=== PATIENT | female | born 1995 | race Hispanic/Latino ===

== ENCOUNTER 2022-05-02 13:25 | Outpatient (CLI) | payer OTHER | END 2022-05-02 13:26 | disposition home or self-care (01) | LOC: CSHULT 13:25 | PROVIDERS: ATTEND Nurse Practitioner Women's Health | DX: Z34.03 Encounter for supervision of normal first pregnancy, third trimester (principal); Z3A.29 29 weeks gestation of pregnancy | CPT/HCPCS: 76805 ==

== ENCOUNTER 2022-07-10 02:30 | Inpatient (IN) | payer OTHER ==
[2022-07-10 03:31] LABS: Fetal Membranes Rupture RUPTURE DETECTED (No Rupture)
[2022-07-10] MEDS ORDERED: Butorphanol Tartrate 1 MG/ML VIAL SLOW IVP PRN (03:53)
[2022-07-10] MEDS ORDERED: Ondansetron PF 4 MG/2 ML Vial IVP PRN ×3 (03:53→18:55)
[2022-07-10] MEDS ORDERED: Acetaminophen 500 MG TAB PO PRN (03:53)
[2022-07-10] MEDS ORDERED: Promethazine HCl 25 MG/ML VIAL IM PRN ×2 (03:53→09:37)
[2022-07-10] MEDS ORDERED: hydrALAZINE 20 MG/ML VIAL SLOW IVP PRN ×2 (03:53→18:55)
[2022-07-10] MEDS ORDERED: Lactated Ringer's 1,000 ML IV SCH (04:00)
[2022-07-10] MEDS ORDERED: Lidocaine 1% (PF) 30 ML VIAL SC PRN (04:08)
[2022-07-10] MEDS ORDERED: NS w/ Oxytocin 30 units 500 ML IV SCH ×3 (04:15→18:55)
[2022-07-10 04:34] VITALS: BMI 44.2
[2022-07-10 05:36] LABS: SARS-CoV-2 NAA Rapid Test Not Detected (NotDetected)
[2022-07-10 06:16] LABS: Hemoglobin 12.3 g/dL (12.0-15.5); Mean Corpuscular HGB CONC 35.3 g/dL (32.0-36.0); Mean Corpuscular Hemoglobin 30.8 pg (27.0-33.0); Mean Platelet Volume 11.3 fl (7.4-10.4); Platelet Count 267 10x3/uL (150-450); RBC Distribution Width 13.9 % (11.5-14.5); White Blood Cell (WBC) Count 11.9 10x3/uL (3.5-10.5)
[2022-07-10 06:50] LABS: Syphilis Antibody Nonreactive (Nonreactive); Syphilis Antibody Index 0.03 S/CO (<1.00 Non-Reactive)
[2022-07-10 06:52] LABS: HBSAg Index 0.17 S/CO (0-0.99); Hep B Surf Ag Non-Reactive S/CO (NonReactive)
[2022-07-10] MEDS ORDERED: Bupivacaine 0.25% HCL 30 ML VIAL ONE (08:00)
[2022-07-10] MEDS ORDERED: Fentanyl 2 mcg/Bup 0.1% Cadd 100 ML ONE (09:09)
[2022-07-10] MEDS ORDERED: ePHEDrine Sulfate 50 MG/10 ML VIAL SLOW IVP PRN (09:37)
[2022-07-10] MEDS ORDERED: Acetaminophen 325 MG TAB PO PRN (09:37)
[2022-07-10] MEDS ORDERED: Naloxone HCl 0.4 mg/ml Vial IVP PRN ×2 (09:37)
[2022-07-10] MEDS ORDERED: Lactated Ringer's 500 ML IV PRN (09:37)
[2022-07-10] MEDS ORDERED: diphenhydrAMINE 50 MG/ML VIAL IVP PRN (09:37)
[2022-07-10] MEDS ORDERED: Moisturizing Cream (Eucerin) 113 GM JAR TOP PRN (09:37)
[2022-07-10] MEDS ORDERED: Communication Order-Pharmacy FS SCH (09:45)
[2022-07-10] MEDS ORDERED: Fentanyl 2 mcg/Bupivacaine 0.1% Cassette 100 ML EPIDURAL SCH (09:45)
[2022-07-10] MEDS ORDERED: Milk Of Magnesia 30 ML UDCUP PO PRN (18:55)
[2022-07-10] MEDS ORDERED: Benzocaine-Menthol 82.5 ML CAN TOP PRN (18:55)
[2022-07-10] MEDS ORDERED: Boostrix 0.5 ML (Tdap) VIAL (>/=7 yrs of age) IM ONE (18:55)
[2022-07-10] MEDS ORDERED: Bisacodyl 10 MG SUPP PR PRN (18:55)
[2022-07-10] MEDS ORDERED: Misoprostol 200 MCG TAB VAG PRN (18:55)
[2022-07-10] MEDS ORDERED: Ferrous Sulfate 325 MG TAB PO SCH (20:00)
[2022-07-10] MEDS: Docusate 100 MG CAP PO SCH (21:16)
[2022-07-10] MEDS: Ibuprofen 800 MG TAB PO SCH (21:16)
[2022-07-11] MEDS: Ibuprofen 800 MG TAB PO SCH ×3 (05:48→22:01)
[2022-07-11] MEDS: Ferrous Sulfate 325 MG TAB PO SCH (07:17)
[2022-07-11] MEDS: Docusate 100 MG CAP PO SCH ×2 (08:50→22:01)
[2022-07-11] MEDS ORDERED: HYDROcodone/Acetaminophen 5/325 mg Tablet PO PRN (10:00)
[2022-07-11 20:06] VITALS: BP 98/57; TEMP 98.8
[2022-07-12] MEDS: Ibuprofen 800 MG TAB PO SCH ×2 (05:24→14:01)
[2022-07-12] MEDS: Docusate 100 MG CAP PO SCH (09:15)
[2022-07-12] MEDS: Ferrous Sulfate 325 MG TAB PO SCH (09:16)
[2022-07-12] MEDS ORDERED: Measles/Mumps/Rubella 10 MCG/0.5 ML VIAL SC ONE (11:00)
[2022-07-12] MEDS ORDERED: Boostrix 0.5 ML (Tdap) VIAL (>/=7 yrs of age) IM ONE (11:00)
== END 2022-07-12 14:10 | disposition home or self-care (01) | DRG 807 ==
LOC: CSHLD/OP 02:30 → CSHLD 04:50 → CSHPP 18:20
PROVIDERS: ADMIT Family Medicine; ATTEND Family Medicine
PROC: 10E0XZZ Delivery of Products of Conception, External Approach (ICD-10-PCS; principal; 2022-07-10)
PROC: 0KQM0ZZ Repair Perineum Muscle, Open Approach (ICD-10-PCS; 2022-07-10)
PROC: 10D17Z9 Manual Extraction of Products of Conception, Retained, Via Natural or Artificial Opening (ICD-10-PCS; 2022-07-10)
PROC: 3E033VJ Introduction of Other Hormone into Peripheral Vein, Percutaneous Approach (ICD-10-PCS; 2022-07-10)
DX: O42.02 Full-term premature rupture of membranes, onset of labor within 24 hours of rupture (principal); Z37.0 Single live birth; Z20.822 Contact with and (suspected) exposure to COVID-19; Z3A.39 39 weeks gestation of pregnancy; Z82.49 Family history of ischemic heart disease and other diseases of the circulatory system; Z83.3 Family history of diabetes mellitus; O69.5XX0 Labor and delivery complicated by vascular lesion of cord, not applicable or unspecified; O70.1 Second degree perineal laceration during delivery
CPT/HCPCS: 36415; 51702; 84112; 85027; 86780; 86850; 86900; 86901; 87340; 90707; 90715; 99285; J0595; J2590; S0020; U0002

== ENCOUNTER 2023-08-23 16:28 | Day surgery (SDC) | payer OTHER ==
[2023-08-23 17:30] LABS: Fetal Membranes Rupture No Membranes Rupture (No Rupture)
[2023-08-23] MEDS ORDERED: hydrALAZINE 20 MG/ML VIAL SLOW IVP PRN (17:44)
[2023-08-23 18:33] VITALS: BMI 51.3
[2023-08-23] MEDS ORDERED: Lactated Ringer's 1,000 ML IV SCH (19:00)
== END 2023-08-23 19:55 | disposition home or self-care (01) ==
LOC: CSHLD/OP 16:28
PROVIDERS: ATTEND Family Medicine
DX: O47.1 False labor at or after 37 completed weeks of gestation (principal); O36.8130 Decreased fetal movements, third trimester, not applicable or unspecified; Z3A.39 39 weeks gestation of pregnancy; Z79.899 Other long term (current) drug therapy
CPT/HCPCS: 76819; 84112; 87480; 87510; 87660; 99283

== ENCOUNTER 2023-09-05 05:04 | Inpatient (IN) | payer OTHER ==
[2023-09-05 05:40] VITALS: BMI 45.1
[2023-09-05 05:57] LABS: Hematocrit 35.1 % (34.9-44.5); Hemoglobin 12.3 g/dL (12.0-15.5); Platelet Count 265 10x3/uL (150-450)
[2023-09-05 06:26] LABS: Hep B Surf Ag - L&D Non-Reactive S/CO (NonReactive)
[2023-09-05 06:27] LABS: Syphilis Antibody Nonreactive (Nonreactive); Syphilis Antibody Index 0.05 S/CO (<1.00 Non-Reactive)
[2023-09-05] MEDS: fentaNYL/Ropivacaine Epidural 100 ML ONE (06:55)
[2023-09-05] MEDS ORDERED: Lactated Ringer's 500 ML IV PRN (06:57)
[2023-09-05] MEDS ORDERED: Ondansetron PF 4 MG/2 ML Vial IVP PRN ×3 (06:57→10:15)
[2023-09-05] MEDS ORDERED: Moisturizing Cream (Eucerin) 113 GM JAR TOP PRN (06:57)
[2023-09-05] MEDS ORDERED: Promethazine HCl 25 MG/ML VIAL IM PRN ×3 (06:57→10:15)
[2023-09-05] MEDS ORDERED: diphenhydrAMINE 50 MG/ML VIAL IVP PRN (06:57)
[2023-09-05] MEDS ORDERED: ePHEDrine Sulfate 50 MG/10 ML VIAL SLOW IVP PRN (06:57)
[2023-09-05] MEDS ORDERED: Acetaminophen 325 MG TAB PO PRN (06:57)
[2023-09-05] MEDS ORDERED: Naloxone HCl 0.4 mg/ml Vial IVP PRN ×2 (06:57)
[2023-09-05] MEDS ORDERED: fentaNYL 2 mcg/Ropivacaine 0.2% Epidural 100 ML CADD EPIDURAL SCH (07:00)
[2023-09-05] MEDS ORDERED: Communication Order-Pharmacy FS SCH (07:00)
[2023-09-05] MEDS: Lidocaine 1% (PF) 30 ML VIAL ONE (07:30)
[2023-09-05] MEDS ORDERED: Ibuprofen 800 MG TAB PO PRN (09:09)
[2023-09-05] MEDS ORDERED: Lidocaine 1% (PF) 30 ML VIAL SC PRN (09:09)
[2023-09-05] MEDS ORDERED: hydrALAZINE 20 MG/ML VIAL SLOW IVP PRN ×2 (09:09→10:15)
[2023-09-05] MEDS ORDERED: HYDROcodone/Acetaminophen 5/325 mg Tablet PO PRN ×2 (09:09→10:15)
[2023-09-05] MEDS ORDERED: Oxytocin 30 units/NS 500 ML 500 ML IV SCH (09:15)
[2023-09-05] MEDS ORDERED: Lactated Ringer's 1,000 ML IV SCH (09:15)
[2023-09-05] MEDS ORDERED: diphenhydrAMINE 25 MG CAP PO PRN (10:15)
[2023-09-05] MEDS ORDERED: Boostrix 0.5 ML (Tdap) VIAL (>/=7 yrs of age) IM ONE (10:15)
[2023-09-05] MEDS ORDERED: Milk Of Magnesia 30 ML UDCUP PO PRN (10:15)
[2023-09-05] MEDS ORDERED: Lanolin Ointment 7 GM TUBE TOP PRN (10:15)
[2023-09-05] MEDS ORDERED: Bisacodyl 10 MG SUPP PR PRN (10:15)
[2023-09-05] MEDS: Oxytocin 30 units/NS 500 ML 500 ML ONE (13:09)
[2023-09-05] MEDS: Ibuprofen 800 MG TAB PO SCH (13:11)
[2023-09-05] MEDS: Ferrous Sulfate 325 MG TAB PO SCH (16:54)
[2023-09-05] MEDS ORDERED: Benzocaine-Menthol 82.5 ML CAN TOP PRN (18:01)
[2023-09-05] MEDS: Docusate 100 MG CAP PO SCH (21:25)
[2023-09-06 07:51] VITALS: BP 118/57; TEMP 98.5
[2023-09-06] MEDS: Prenatal Vitamin 1 TAB PO SCH (08:16)
== END 2023-09-06 16:55 | disposition home or self-care (01) | DRG 807 ==
LOC: CSHLD/OP 05:04 → CSHLD 06:25 → CSHPED 09:25
PROVIDERS: ADMIT Family Medicine; ATTEND Family Medicine
PROC: 10E0XZZ Delivery of Products of Conception, External Approach (ICD-10-PCS; principal; 2023-09-05)
PROC: 0HQ9XZZ Repair Perineum Skin, External Approach (ICD-10-PCS; 2023-09-05)
DX: O99.214 Obesity complicating childbirth (principal); Z37.0 Single live birth; E66.9 Obesity, unspecified; Z3A.39 39 weeks gestation of pregnancy; O70.0 First degree perineal laceration during delivery
CPT/HCPCS: 85014; 85018; 85049; 86780; 86850; 86900; 86901; 87340; 99285; J2001; J2590